=== PATIENT | female | born 1960 | race Caucasian/White ===

== ENCOUNTER 2020-07-04 06:07 | Emergency (ER) | payer OTHER ==
[~2020-07-04] VITALS: Ht 165.1 cm; Wt 99.8 kg
[2020-07-04] MEDS ORDERED: COZAAR 25 MG TA25 M1 PO (06:17)
[2020-07-04] MEDS ORDERED: SYNTHROID175 MCG PO (06:18)
[2020-07-04] MEDS ORDERED: LIPITOR 10 MG10 M1 PO (06:19)
[2020-07-04 07:10] LABS: ABSOLUTE NEUTROPHILS 4.5 thou/uL (1.4-8.2); BASOPHILS 1.3 % (0.0-2.0); EOSINOPHILS 1.8 % (0.0-3.0); HEMATOCRIT 39.9 % (37.0-47.0); HEMOGLOBIN 13.7 gm/dL (12.0-15.0); LYMPHOCYTES 28.3 % (24.0-44.0); MCH 28.7 pg (26.0-34.0); MCHC 34.3 g/dL (28.0-37.0); MCV 83.8 fL (80.0-100.0); MONOCYTES 9.9 % (1.0-8.0); PLATELET COUNT 263 thou/uL (150-400); POLYS 58.7 % (36.0-66.0); RBC 4.77 mil/uL (4.20-5.00); RDW 14.9 % (10.5-14.5); WBC 7.7 thou/uL (4.0-11.0)
[2020-07-04 08:10] LABS: CALCIUM 7.5 mg/dL (8.5-10.1); CREATININE 0.8 mg/dL (0.6-1.0); POTASSIUM 3.1 mmol/L (3.5-5.1)
[2020-07-04 12:28] VITALS: BP 145/95
--- NOTE | 2020-07-05 08:59 | EKG ---
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 07/05/20 0859 3 Brayden Coleman MD, [facility] /EPI
--- NOTE | 2020-07-05 09:07 | EKG ---
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: [facility] : 1960 Requested By: Drake Potts Order Number: [id number] MD: Brayden Coleman Measurements Intervals [place] Rate: 77 P: 29 [place]: 162 QRS: -4 QRSD: 96 T: 268 QT: 380 QTc: 431 Interpretive Statements Sinus rhythm Left ventricular hypertrophy Borderline T abnormalities, diffuse leads Compared to ECG 07/04/2020 07:14:18 No significant change was found Electronically Signed On 07-05-2020 9:06:54 CDT by Brayden Coleman [email or web address] <ELECTRONICALLY SIGNED> By: Brayden Coleman MD, [facility] 07/05/2006 0 0 Brayden Coleman MD, [facility] /EPI
== END 2020-07-04 12:30 | disposition home or self-care (01) ==
LOC: ER 06:07
PROVIDERS: Emergency Medicine
DX: I10 Essential (primary) hypertension (principal); R07.89 Other chest pain; Z79.899 Other long term (current) drug therapy